=== PATIENT | female | born 1975 | race Two or more races ===

== ENCOUNTER 2020-01-25 12:37 | Day surgery (SDC) | payer OTHER ==
[~2020-01-25 12:37] MED LIST: LOVENOX60 MG/0.6 SUBCUTANEO
== END 2020-01-25 18:15 | disposition home or self-care (01) ==
LOC: CIR.AMB 12:37
PROVIDERS: ATTEND Obstetrics & Gynecology
DX: O02.1 Missed abortion (principal); Z20.828 Contact with and (suspected) exposure to other viral communicable diseases